=== PATIENT | female | born 1985 | race Caucasian/White ===

== ENCOUNTER 2021-12-04 21:51 | Emergency (ER) | payer BC ==
[2021-12-04 22:31] LABS: BASO # 0.06 K/mm3 (0.02-0.10); EOS # 0.11 K/mm3 (0.04-0.40); EOS % 0.6 % (1.0-5.0); HEMATOCRIT 42.3 % (37.0-47.0); HEMOGLOBIN 13.7 g/dL (12.5-16.0); LYMPH# 3.51 K/mm3 (1.50-4.00); MEAN CELL VOLUME 82 fl (78-100); MEAN CORPUSCULAR HEMOGLOBIN 27 pg (27-31); MEAN CORPUSCULAR HGB CONC 32 g/dL (33-37); MONO # 0.92 K/mm3 (0.20-0.80); NEU # 13.59 K/mm3 (1.40-6.50); PLATELET COUNT 334 K/mm3 (130-400); RED BLOOD COUNT 5.14 M/mm3 (4.10-5.30); RED CELL DISTRIBUTION WIDTH 14.3 % (11.5-14.5); WHITE BLOOD COUNT 18.2 K/mm3 (4.8-10.8)
[2021-12-04 22:40] LABS: ALBUMIN 4.4 g/dL (3.5-5.0)
[2021-12-04 22:41] LABS: POTASSIUM 3.8 mmol/L (3.5-5.1)
[2021-12-04 22:42] LABS: CALCIUM 9.6 mg/dL (8.3-10.5)
[2021-12-04 22:45] LABS: TOTAL BILIRUBIN 0.3 mg/dL (0.2-1.2)
[2021-12-04 23:39] LABS: URINE APPEARANCE CLEAR; URINE COLOR YELLOW; URINE GLUCOSE NEGATIVE (NEGATIVE); URINE PROTEIN(semi-quant) TRACE (NEGATIVE)
[2021-12-04 23:40] LABS: URINE BILIRUBIN NEGATIVE (NEGATIVE); URINE BLOOD 250 ery/uL (NEGATIVE); URINE KETONE NEGATIVE (NEGATIVE); URINE LEUKOCYTE ESTERASE TRACE (NEGATIVE); URINE MUCUS PRESENT (NOT PRESENT); URINE NITRATE NEGATIVE (NEGATIVE); URINE UROBILINOGEN NORMAL (NORMAL); URINE WBC 0-1 /hpf (0-3)
[2021-12-05 02:11] VITALS: BP 120/80
== END 2021-12-05 02:19 | disposition home or self-care (01) ==
LOC: ED 21:51
PROVIDERS: Nurse Practitioner Family
DX: R10.13 Epigastric pain (principal); R11.10 Vomiting, unspecified
CPT/HCPCS: J1200; J1885; J2405; J2765; J7030; Q9967

== ENCOUNTER → 2022-10-12 | Outpatient (CLI) | payer BC | LOC: RAD 14:52 | DX: M54.50 Low back pain, unspecified (principal) ==